=== PATIENT | male | born 1990 | race Caucasian/White ===

== ENCOUNTER 2023-04-16 01:21 | Emergency (ER) | payer OTHER ==
[2023-04-16] MEDS ORDERED: HYDROCODONE/APAP 5/325 MG TAB ONE (02:16)
[2023-04-16] MEDS ORDERED: TDAP (DIPHTH,PERTUSS(ACELL),TET VAC) 0.5 ML VIAL IMVAC ONE (02:17)
[2023-04-16] MEDS ORDERED: KETOROLAC 30 MG/ML INJ ONE (02:17)
--- NOTE | 2023-04-16 03:09 | EDPHYS ---
Physician Documentation [facility] Name: Harshad Boss Jr Age: 32 yrs Sex: Male : 1990 Arrival Date: 04/16/2023 Time: 01:21 Bed 17 Private MD: ED Physician Luis Trujillo HPI: 04/16 01:43 This 32 yrs old Male presents to ER via Wheelchair with complaints of Knee Injury. snw 01:43 Onset: The symptoms/episode began/occurred suddenly, just prior to arrival. The patient snw has not experienced similar symptoms in the past. It is unknown whether or not the patient has recently seen a physician. 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 Pt had his left knee locked with his weight on that leg when the large person he was trying to detain fell onto his lateral knee forcing his knee medially. Tenderness to left medial knee. Historical: - Allergies: 01:25 No Known Allergies; bp - Home Meds: 01:25 None [Active]; bp - PMHx: 01:25 None; bp - PSHx: 01:25 BACK SURGERY; bp - Immunization history:: Adult Immunizations up to date. - Social history:: Smoking status: Patient denies any tobacco usage or history of. ROS: 01:43 Constitutional: Negative for fever, chills, and weight loss, Eyes: Negative for injury, snw pain, redness, and discharge, ENT: Negative for injury, pain, and discharge, Neck: Negative for injury, pain, and swelling, Cardiovascular: Negative for chest pain, palpitations, and edema, Respiratory: Negative for shortness of breath, cough, wheezing, and pleuritic chest pain, Abdomen/GI: Negative for abdominal pain, nausea, vomiting, diarrhea, and constipation, Back: Negative for injury and pain, : Negative for injury, bleeding, discharge, and swelling, Skin: Negative for injury, rash, and discoloration, Neuro: Negative for headache, weakness, numbness, tingling, and seizure, Psych: Negative for depression, anxiety, suicide ideation, homicidal ideation, and hallucinations, 01:43 MS/extremity: Positive for injury or acute deformity, decreased range of motion, pain, tenderness, of the medial aspect of left knee, Exam: 01:42 Constitutional: This is a well developed, well nourished patient who is awake, alert, snw and in no acute distress. Head/Face: Normocephalic, atraumatic. Eyes: Pupils equal round and reactive to light, extra-ocular motions intact. Lids and lashes normal. Conjunctiva and sclera are non-icteric and not injected. Cornea within normal limits. Periorbital areas with no swelling, redness, or edema. ENT: Nares patent. No nasal discharge, no septal abnormalities noted. Tympanic membranes are normal and external auditory canals are clear. Oropharynx with no redness, swelling, or masses, exudates, or evidence of obstruction, uvula midline. Mucous membranes moist. Neck: Trachea midline, no thyromegaly or masses palpated, and no cervical lymphadenopathy. Supple, full range of motion without nuchal rigidity, or vertebral point tenderness. No Meningismus. Chest/axilla: Normal chest wall appearance and motion. Nontender with no deformity. No lesions are appreciated. Cardiovascular: Regular rate and rhythm with a normal S1 and S2. No gallops, murmurs, or rubs. Normal PMI, no JVD. No pulse deficits. Respiratory: Lungs have equal breath sounds bilaterally, clear to auscultation and percussion. No rales, rhonchi or wheezes noted. No increased work of breathing, no retractions or nasal flaring. Abdomen/GI: Soft, non-tender, with normal bowel sounds. No distension or tympany. No guarding or rebound. No evidence of tenderness throughout. Back: No spinal tenderness. No costovertebral tenderness. Full range of motion. Neuro: Awake and alert, GCS 15, oriented to person, place, time, and situation. Cranial nerves II-XII grossly intact. Motor strength 5/5 in all extremities. Sensory grossly intact. Cerebellar exam normal. Normal gait. Psych: Awake, alert, with orientation to person, place and time. Behavior, mood, and affect are within normal limits. 01:42 Musculoskeletal/extremity: Extremities: grossly normal except: noted in the medial aspect of left knee: decreased ROM, tenderness, 01:42 Skin: Appearance: normal except for affected area, injury, abrasion(s), very small abrasion noted, of the lateral aspect of left hand, Vital Signs: 01:23 BP 147 / 94; Pulse 111; Resp 16; Temp 98; Pulse Ox 97% ; Weight 95.25 kg; Height 6 ft. bp 3 in. ; 01:23 Body Mass Index 26.25 (95.25 kg, 190.5 cm) bp MDM: 01:23 Patient medically screened. snw 01:49 Differential diagnosis: tendonitis, internal derangement of knee, meniscal tear. Data snw reviewed: vital signs, nurses notes, radiologic studies, plain films. I considered the following discharge prescriptions or medication management in the emergency department Medications were administered in the Emergency Department. See MAR. Counseling: I had a detailed discussion with the patient and/or guardian regarding the historical points, exam findings, and any diagnostic results supporting the discharge/admit diagnosis, the presence of at least one elevated blood pressure reading (>120/80) during this emergency department visit, radiology results, the need for outpatient follow up, for definitive care, a orthopedic surgeon. Special discussion: I have referred the patient to see his PCP for further evaluation of high blood pressure. Based on the history and exam findings, there is no indication for further emergent testing or inpatient evaluation. I discussed with the patient/guardian the need to see the orthopedic surgeon for further evaluation of the symptoms. 04/16 02:11 Order name: Knee Left 3 View XRAY pf1 04/16 03:11 Order name: Crutches; Complete Time: 03:38 snw Administered Medications: 02:08 Drug: Ketorolac IM 30 mg IM once Route: IM; Site: right deltoid; bp 03:38 Follow up: Response: No adverse reaction bp 02:08 Drug: Boostrix Tdap IM 0.5 ml IM once; as a single dose Route: IM; Site: right deltoid; bp 03:38 Follow up: Response: No adverse reaction bp 02:08 Drug: HYDROcodone-acetaminophen PO 5 mg-325 mg 1 tabs PO once Route: PO; bp 03:37 Follow up: Response: No adverse reaction bp Disposition: 01:55 I was immediately available on-site in the Emergency Department for consultation in the ms3 care of the patient. Disposition Summary: 04/16/23 03:08 Discharge Ordered Notes: Location: Home snw Condition: Stable snw Diagnosis - Unspecified internal derangement of left knee snw Followup: snw - With: Emergency Department - When: As needed - Reason: Worsening of condition Followup: snw - With: Phan Romero MD - When: 1 - 2 days - Reason: Recheck today's complaints, Continuance of care Discharge Instructions: - Discharge Summary Sheet snw - Crutch Use, Adult snw - How to Use a Knee Immobilizer snw - Knee Sprain, Adult snw - RICE Therapy for Routine Care of Injuries snw Forms: - Work release form snw - Medication Reconciliation Form snw - Thank You Letter snw - Antibiotic Education snw - Prescription Opioid Use snw - Patient Portal Instructions snw - Leadership Thank You Letter snw Prescriptions: - Mobic 7.5 mg Oral Tablet - take 1 tablet ORAL route once daily take with food; 20 tablet; Refills: 0, snw Product Selection Permitted - Tramadol 50 mg Oral Tablet - take 1 tablet ORAL route every 8 hours as needed; 12 tablet; Refills: 0, snw Product Selection Permitted Signatures: Dispatcher [employer] EDBeverly Brooks FNP-C PRODUCT ASSEMBLER-Csnw Sudhir Villaseñor, RN RN Luis Greenberg DO DO ms3 Lucy Boogie RN RN pf1 Helen Craft [id number]
--- NOTE | 2023-04-16 03:09 | ER ---
Nurse's Notes [facility] Name: Harshad Boss Jr Age: 32 yrs Sex: Male : 1990 Arrival Date: 04/16/2023 Time: 01:21 Bed 17 Private MD: Diagnosis: Unspecified internal derangement of left knee Presentation: 04/16 01:23 Chief complaint: Patient states: DURING ALTERCATION WITH ASSAILANT LEFT KNEE WAS bp HYPEREXTENDED MEDIALLY. NOW PAIN WITH WEIGHT BEARING. Coronavirus screen: At this time, the client does not indicate any symptoms associated with coronavirus-19. Ebola Screen: No symptoms or risks identified at this time. Initial Sepsis Screen: Does the patient meet any 2 criteria? HR > 90 bpm. No. Patient's initial sepsis screen is negative. Does the patient have a suspected source of infection? No. Patient's initial sepsis screen is negative. Risk Assessment: Do you want to hurt yourself or someone else? Patient reports no desire to harm self or others. Onset of symptoms was April 16, 2023 at 01:00. 01:23 Method Of Arrival: Wheelchair bp 01:23 Acuity: JEWELS 3 bp Triage Assessment: 01:25 General: Appears uncomfortable, Behavior is calm, cooperative, appropriate for age. bp Pain: Complains of pain in left knee. EENT: No deficits noted. Musculoskeletal: Reports pain in left knee. Injury Description: Deformity sustained to left knee. Historical: - Allergies: 01:25 No Known Allergies; bp - Home Meds: 01:25 None [Active]; bp - PMHx: 01:25 None; bp - PSHx: 01:25 BACK SURGERY; bp - Immunization history:: Adult Immunizations up to date. - Social history:: Smoking status: Patient denies any tobacco usage or history of. Screenin: [facility] ED Fall Risk Assessment (Adult) History of falling in the last 3 months, bp including since admission Yes- single mechanical fall (1 pt). Abuse screen: Denies threats or abuse. Denies injuries from another. Nutritional screening: No deficits noted. Tuberculosis screening: No symptoms or risk factors identified. Assessment: : General: SEE TRIAGE NOTE. bp Vital Signs: : BP 147 / 94; Pulse 111; Resp 16; Temp 98; Pulse Ox 97% ; Weight 95.25 kg; Height 6 ft. bp 3 in. ; 01:23 Body Mass Index 26.25 (95.25 kg, 190.5 cm) bp ED Course: 01:23 Patient arrived in ED. bp 01:23 Beverly Zaldivar FNP-C is PHCP. snw 01:23 Luis Trujillo DO is Attending Physician. snw 01:25 Triage completed. bp 01:25 Arm band placed on. bp 01:26 Patient has correct armband on for positive identification. Bed in low position. Call bp light in reach. Adult w/ patient. 01:29 Sudhir Villaseñor, RN is Primary Nurse. bp 02:40 Knee Left 3 View XRAY In Process Unspecified. EDMS 03:08 Phan Romero MD is Referral Physician. snw 03:36 No provider procedures requiring assistance completed. Patient did not have IV access bp during this emergency room visit. 03:36 Crutch training done. Knee immobilizer applied on left knee. bp Administered Medications: 02:08 Drug: Ketorolac IM 30 mg IM once Route: IM; Site: right deltoid; bp 03:38 Follow up: Response: No adverse reaction bp 02:08 Drug: Boostrix Tdap IM 0.5 ml IM once; as a single dose Route: IM; Site: right deltoid; bp 03:38 Follow up: Response: No adverse reaction bp 02:08 Drug: HYDROcodone-acetaminophen PO 5 mg-325 mg 1 tabs PO once Route: PO; bp 03:37 Follow up: Response: No adverse reaction bp Outcome: 03:08 Discharge ordered by . snw 03:37 Discharged to home with crutches, with friend, bp 03:37 Condition: stable 03:37 Discharge instructions given to patient, Instructed on discharge instructions, follow up and referral plans. medication usage, crutch walking, Demonstrated understanding of instructions, follow-up care, medications, Prescriptions given X 2, 03:38 Patient left the ED. bp Signatures: Dispatcher [employer] EDMS Beverly Zaldivar FNP-C MILK RECEIVER-Csnw Sudhir Villaseñor, RN RN bp
[2023-04-16 03:43] VITALS: BP 147/94; TEMP 98; O2SAT 97
--- NOTE | 2023-04-18 12:29 | RAD REPORT ---
EXAM DESCRIPTION: RAD - Knee Left 3 View - 04/16/2023 2:39 am CLINICAL HISTORY: SMASH INJURY COMPARISON: None. TECHNIQUE: XR KNEE 3 VIEWS LEFT 04/16/2023 2:11 AM [employer]OUND [employer]W MEMBER FINDINGS: There is no fracture. Joint spaces are preserved. Soft tissues are unremarkable. IMPRESSION: No acute osseous findings. Electronically signed by: Nile Bateman MD 04/16/2023 03:28 AM GROUND [employer]PER[employer] CREW MEMBER Due to temporary technical issues with the PACS/Fluency reporting system, reports are being signed by the in house radiologist without review as a courtesy to ensure prompt reporting. The interpreting r adiologist is fully responsible for the content of the report.
== END 2023-04-16 03:38 | disposition home or self-care (01) ==
LOC: ER 01:21
DX: M23.92 Unspecified internal derangement of left knee (principal); X58.XXXA Exposure to other specified factors, initial encounter; Y99.0 Civilian activity done for income or pay
CPT/HCPCS: 96372; 99284